=== PATIENT | male | born 1975 | race Two or more races ===

== ENCOUNTER 2023-12-18 06:34 | Emergency (ER) | payer OTHER ==
[~2023-12-18] VITALS: Ht 180.3 cm; Wt 104.3 kg
[2023-12-18] MEDS ORDERED: KETOROLAC TROMETHAMINE INJ 30 MG/ML VIAL ONE (07:06)
[2023-12-18] MEDS: KETOROLAC TROMETHAMINE INJ 60 MG/2 ML VIAL IM ONE (07:11)
[2023-12-18 10:14] VITALS: BP 129/74; TEMP 98; O2SAT 98
== END 2023-12-18 10:14 | disposition home or self-care (01) ==
LOC: ER 06:38
DX: M25.561 Pain in right knee (principal); J45.909 Unspecified asthma, uncomplicated; K21.9 Gastro-esophageal reflux disease without esophagitis; Z88.0 Allergy status to penicillin
CPT/HCPCS: 99285; 73700; 96372; 73610; 73630; 73502; J1885

== ENCOUNTER 2024-04-14 11:48 | Emergency (ER) | payer OTHER ==
[~2024-04-14] VITALS: Ht 180.3 cm; Wt 118.8 kg
[2024-04-14] MEDS ORDERED: ONDANSETRON HCL/PF 4 MG/2 ML VIAL ONE (12:07)
[2024-04-14] MEDS ORDERED: MORPHINE SULFATE INJ 4 MG/ML DISP.SYRIN ONE (12:07)
[2024-04-14] MEDS: IV NS 0.9% 1,000 ML BAG IV ONE (12:11)
[2024-04-14] MEDS: MORPHINE SULFATE INJ 2 MG/ML DISP.SYRIN IV ONE (12:11)
[2024-04-14] MEDS: ONDANSETRON HCL/PF 4 MG/2 ML VIAL IVP ONE (12:12)
[2024-04-14 12:27] LABS: CALCIUM, SERUM 8.9 mg/dL (8.5-10.1); CARBON DIOXIDE 25 mmol/L (21-32); CHLORIDE 105 mmol/L (98-107); CREATININE 1.1 mg/dL (0.6-1.3); GLUCOSE 111 mg/dL (74-106); SODIUM SERUM 139 mmol/L (136-145); UREA NITROGEN, BLOOD 13 mg/dL (7-18)
[2024-04-14 12:37] LABS: BASOPHILS % (AUTO) 0.4 % (0.0-2.0); EOSINOPHILS % (AUTO) 0.4 % (0.0-6.0); HEMATOCRIT 44 % (39-51); HEMOGLOBIN 15.2 g/dL (13.5-17.5); LYMPHOCYTES # (AUTO) 1.5 K/uL (0.8-4.8); LYMPHOCYTES % (AUTO) 17.2 % (20.0-44.0); MEAN CORPUSCULAR HEMOGLOBIN 31 PG (26.0-33.0); MEAN CORPUSCULAR HGB CONC 35 g/dl (31.0-36.0); MEAN CORPUSCULAR VOLUME 89 fL (80-96); MONOCYTES # (AUTO) 0.5 K/uL (0.1-1.30); MONOCYTES % (AUTO) 5.6 % (2.0-12.0); NEUTROPHILS # (AUTO) 6.6 K/uL (1.8-8.9); NEUTROPHILS % (AUTO) 76.4 % (43.0-81.0); PLATELET COUNT (AUTO) 236 K/uL (150-450); RED BLOOD CELL COUNT(AUTO) 4.89 MIL/uL (4.5-6.0); RED CELL DISTRIBUTION WIDTH 14.2 % (11.5-15.0); WHITE BLOOD COUNT (AUTO) 8.6 K/uL (4.3-11.0)
[2024-04-14] MEDS ORDERED: IOHEXOL-350 100 ML VIAL IV ONE (12:46)
[2024-04-14] MEDS ORDERED: IV NS 0.9% 250 ML IV ONE (12:46)
[2024-04-14] MEDS ORDERED: CT SWABBABLE VALVE TRANS SET 1 EA INFUS.SET MC ONE (12:46)
[2024-04-14] MEDS ORDERED: HYDROMORPHONE 1 MG/1 ML DISP.SYRIN ONE (12:56)
[2024-04-14] MEDS: HYDROMORPHONE INJ 2 MG/ML DISP.SYRIN IV ONE (13:01)
[2024-04-14 13:32] LABS: INR 0.97 (0.91-1.10); PARTIAL THROMBOPLASTIN TIME 27.9 SEC (24.3-34.3); PROTHROMBIN TIME 10.3 SECS (9.2-11.1)
[2024-04-14 13:39] LABS: ALBUMIN 3.9 g/dL (3.4-5.0); BILIRUBIN,DIRECT 0.1 mg/dL (0.0-0.2); BILIRUBIN,TOTAL 0.3 mg/dL (0.2-1.0); TOTAL PROTEIN, SERUM 7.5 g/dL (6.4-8.2)
[2024-04-14 15:03] VITALS: BP 143/86; TEMP 98.3; O2SAT 99
== END 2024-04-14 15:12 | disposition home or self-care (01) ==
LOC: ER 11:55
DX: R07.89 Other chest pain (principal); R10.11 Right upper quadrant pain; R11.0 Nausea; Z88.0 Allergy status to penicillin
CPT/HCPCS: 99285; 74174; 96374; 71275; 76705; 96375; 71045; 96361; 93005 ×3; 85025; 80048; 83690; 80076; 36415; 84484 ×2; 85730; J1171; J2270; J2405; J7030; J7050; Q9967

== ENCOUNTER 2024-06-19 10:20 | Emergency (ER) | payer OTHER ==
[~2024-06-19] VITALS: Ht 180.3 cm; Wt 122.5 kg
[2024-06-19] MEDS ORDERED: ONDANSETRON HCL/PF 4 MG/2 ML VIAL ONE (10:37)
[2024-06-19] MEDS ORDERED: MORPHINE SULFATE INJ 4 MG/ML DISP.SYRIN ONE (10:37)
[2024-06-19] MEDS: IV NS 0.9% 1,000 ML BAG IV ONE (10:44)
[2024-06-19] MEDS: MORPHINE SULFATE INJ 2 MG/ML DISP.SYRIN IV ONE (10:45)
[2024-06-19] MEDS: ONDANSETRON HCL/PF 4 MG/2 ML VIAL IVP ONE (10:45)
[2024-06-19 10:47] LABS: BASOPHILS % (AUTO) 0.6 % (0.0-2.0); EOSINOPHILS % (AUTO) 0.6 % (0.0-6.0); HEMATOCRIT 42 % (39-51); HEMOGLOBIN 14.3 g/dL (13.5-17.5); LYMPHOCYTES # (AUTO) 1.4 K/uL (0.8-4.8); LYMPHOCYTES % (AUTO) 17.6 % (20.0-44.0); MEAN CORPUSCULAR HEMOGLOBIN 30 PG (26.0-33.0); MEAN CORPUSCULAR HGB CONC 34 g/dl (31.0-36.0); MEAN CORPUSCULAR VOLUME 88 fL (80-96); MONOCYTES # (AUTO) 0.4 K/uL (0.1-1.30); MONOCYTES % (AUTO) 4.3 % (2.0-12.0); NEUTROPHILS # (AUTO) 6.3 K/uL (1.8-8.9); NEUTROPHILS % (AUTO) 76.9 % (43.0-81.0); PLATELET COUNT (AUTO) 253 K/uL (150-450); RED BLOOD CELL COUNT(AUTO) 4.73 MIL/uL (4.5-6.0); WHITE BLOOD COUNT (AUTO) 8.2 K/uL (4.3-11.0)
[2024-06-19 10:56] LABS: CALCIUM, SERUM 8.8 mg/dL (8.5-10.1); CREATININE 1.1 mg/dL (0.6-1.3); POTASSIUM 3.9 mmol/L (3.5-5.1)
[2024-06-19 11:02] LABS: ALBUMIN 3.5 g/dL (3.4-5.0); BILIRUBIN,DIRECT 0.1 mg/dL (0.0-0.2); BILIRUBIN,TOTAL 0.4 mg/dL (0.2-1.0); TOTAL PROTEIN, SERUM 7.2 g/dL (6.4-8.2)
[2024-06-19] MEDS ORDERED: IOHEXOL-300 100 ML VIAL IV ONE (11:34)
[2024-06-19] MEDS ORDERED: IV NS 0.9% 250 ML IV ONE (11:34)
[2024-06-19 11:48] LABS: APPEARANCE,URINE CLEAR (CLEAR); BILIRUBIN,URINE NEGATIVE (NEGATIVE); BLOOD, URINE NEGATIVE Ery/uL (NEGATIVE); COLOR,URINE YELLOW (YELLOW); KETONES,URINE NEGATIVE (NEGATIVE); LEUKOCYTE ESTERASE ,URINE NEGATIVE (NEGATIVE); NITRITE, URINE NEGATIVE (NEGATIVE); PH,URINE 6.5 (5.0-8.0); PROTEIN,URINE NEGATIVE (NEGATIVE); UGLUCOSE NEGATIVE (NEGATIVE); UROBILINOGEN,URINE 0.2 EU/dL (0.2)
[2024-06-19] MEDS ORDERED: KETOROLAC TROMETHAMINE INJ 30 MG/ML VIAL ONE (13:24)
[2024-06-19] MEDS: KETOROLAC TROMETHAMINE INJ 30 MG/ML VIAL IV ONE (13:42)
[2024-06-19] MEDS ORDERED: IBUP-1955 PO (13:58)
[2024-06-19 14:37] VITALS: BP 118/76; TEMP 97.9; O2SAT 98
== END 2024-06-19 14:37 | disposition home or self-care (01) ==
LOC: ER 10:32
DX: G89.18 Other acute postprocedural pain (principal); I10 Essential (primary) hypertension; E11.9 Type 2 diabetes mellitus without complications; J45.909 Unspecified asthma, uncomplicated; Z88.0 Allergy status to penicillin; Z90.49 Acquired absence of other specified parts of digestive tract
CPT/HCPCS: 99285; 74177; 96374; 96375; 96361; 85025; 80048; 83690; 80076; 81003; 36415; J1885; J2270; J2405; J7030; J7050; Q9967

== ENCOUNTER 2024-10-22 13:20 | Emergency (ER) | payer OTHER ==
[~2024-10-22] VITALS: Ht 180.3 cm; Wt 120.2 kg
[~2024-10-22 13:20] MED LIST: IBUP-1955 PO
[2024-10-22] MEDS ORDERED: ACETAMINOPHEN 325 MG TABLET ONE (14:37)
[2024-10-22] MEDS ORDERED: dexaMETHasone SOD PHOSPHATE 1 ML ONE (14:37)
[2024-10-22] MEDS ORDERED: KETOROLAC TROMETHAMINE 15 MG/ML VIAL ONE (14:37)
[2024-10-22] MEDS: KETOROLAC TROMETHAMINE 15 MG/ML VIAL IM ONE (14:45)
[2024-10-22] MEDS: ACETAMINOPHEN 325 MG TABLET PO ONE (14:45)
[2024-10-22] MEDS: dexaMETHasone SOD PHOSPHATE 4 MG/ML VIAL IM ONE (14:45)
[2024-10-22] MEDS: ONDANSETRON HCL 4 MG/5 ML SOLUTION PO ONE (14:53)
[2024-10-22] MEDS ORDERED: ONDA4TAB5 PO (14:54)
[2024-10-22] MEDS ORDERED: CEPH500T PO (14:54)
[2024-10-22 16:51] VITALS: BP 118/73; TEMP 98.5; O2SAT 98
== END 2024-10-22 16:51 | disposition home or self-care (01) ==
LOC: ER 13:23
DX: J02.9 Acute pharyngitis, unspecified (principal); I10 Essential (primary) hypertension; E11.9 Type 2 diabetes mellitus without complications; J45.909 Unspecified asthma, uncomplicated; K21.9 Gastro-esophageal reflux disease without esophagitis; Z79.1 Long term (current) use of non-steroidal anti-inflammatories (NSAID); Z88.0 Allergy status to penicillin; Z20.822 Contact with and (suspected) exposure to COVID-19
CPT/HCPCS: 99284; 87426; 96372 ×2; 87804 ×2; 87070; 87880; J1885; J1100; Q0162; 86403-TC